=== PATIENT | female | born 1995 | race Caucasian/White ===

== ENCOUNTER 2016-04-17 16:23 | Emergency (ER) | payer OTHER ==
[2014-07-12 06:51] VITALS: BMI 38.0
[~2016-04-17 16:23] MED LIST: GLUCOPHAGE500 MG PO; LITHIUM CARBON300 M3 PO; PROTONIX40 MG PO; TOPAMAX50 MG PO; WELLBUTRIN75 MG PO
[2016-06-17] MEDS ORDERED: NAPROSYN500 MG PO (11:30)
[2016-06-17] MEDS ORDERED: ROBAXIN500 MG PO (11:31)
== END 2016-04-17 17:38 | disposition home or self-care (01) ==
LOC: D.ER 16:23
DX: G43.909 Migraine, unspecified, not intractable, without status migrainosus (principal); F31.9 Bipolar disorder, unspecified; I73.00 Raynaud's syndrome without gangrene; F20.9 Schizophrenia, unspecified; F17.200 Nicotine dependence, unspecified, uncomplicated

== ENCOUNTER → 2016-05-14 14:17 | Outpatient (CLI) | payer OTHER ==
[2014-07-12 06:51] VITALS: BMI 38.0
[~2016-05-14 14:17] MED LIST changes: +HYDROCODONE-APA1 TAB PO; +NAPROSYN500 MG PO; +ROBAXIN500 MG PO
== END | disposition home or self-care (01) ==
LOC: D.LABREF 14:17
DX: L02.91 Cutaneous abscess, unspecified (principal)

== ENCOUNTER 2016-05-14 18:20 | Emergency (ER) | payer OTHER ==
[2014-07-12 06:51] VITALS: BMI 38.0
[~2016-05-14 18:20] MED LIST changes: -HYDROCODONE-APA1 TAB PO; -NAPROSYN500 MG PO; -ROBAXIN500 MG PO
[2016-06-17] MEDS ORDERED: NAPROSYN500 MG PO (11:30)
[2016-06-17] MEDS ORDERED: ROBAXIN500 MG PO (11:31)
== END 2016-05-14 19:35 | disposition home or self-care (01) ==
LOC: D.ER 18:20
DX: L02.211 Cutaneous abscess of abdominal wall (principal); F31.9 Bipolar disorder, unspecified; I73.00 Raynaud's syndrome without gangrene; F20.9 Schizophrenia, unspecified

== ENCOUNTER → 2016-06-01 15:03 | Outpatient (CLI) | payer OTHER ==
[2014-07-12 06:51] VITALS: BMI 38.0
[~2016-06-01 15:03] MED LIST changes: +HYDROCODONE-APA1 TAB PO; +NAPROSYN500 MG PO; +ROBAXIN500 MG PO
== END | disposition home or self-care (01) ==
LOC: D.MRI 15:00
DX: M25.562 Pain in left knee (principal); M25.561 Pain in right knee

== ENCOUNTER 2016-06-18 05:34 | Day surgery (SDC) | payer OTHER ==
[~2016-06-18] VITALS: Ht 180.3 cm; Wt 129.7 kg
[~2016-06-18 05:34] MED LIST changes: -HYDROCODONE-APA1 TAB PO
[2016-06-18 06:08] LABS: HEMATOCRIT 36.3 % (36.0-48.0); HEMOGLOBIN 11.8 g/dL (12-16); MCH 32.2 pg (26.0-34.0); MCHC 32.5 g/dL (31.0-37.0); MCV 98.9 fL (80.0-100.0); MEAN PLATELET VOLUME 10.9 fL (7.4-10.4); RBC 3.67 10x6/uL (4.00-5.40); RDW 13.3 % (11.5-14.5); WBC 8.6 10x3/uL (4.8-10.8)
[2016-06-18 06:12] VITALS: BP 124/76; Ht 180.3 cm; Wt 129.7 kg
[2016-06-18 06:29] LABS: HCG URINE NEGATIVE (NEGATIVE)
[2016-06-18] MEDS ORDERED: HYDROCODONE-APA1 TAB PO (09:50)
--- NOTE | 2016-06-18 13:29 | NUR ---
1120 IV DC WITH CATHER TIP INTACT
--- NOTE | 2016-06-22 10:25 | OP ---
PATIENT NAME: ALEJANDRO HOPE MEDICAL RECORD: [id number] :94 LOCATION:D.[facility] ADMISSION DATE: SURGEON: RIANNA PADILLA MD DATE OF OPERATION: 06/18/2016 PREOPERATIVE DIAGNOSIS: Right knee anterior cruciate ligament tear. POSTOPERATIVE DIAGNOSES: Right knee anterior cruciate ligament tear plus medial meniscus tear. PROCEDURE PERFORMED: Right knee ACL reconstruction using an allograft and partial medial meniscectomy. SURGEON: Yariel Padilla MD. ANESTHESIA: General with a block for postop pain. TOURNIQUET: Not used. CONDITION: She tolerated the procedure well, was transferred to the recovery room in stable condition at termination of the procedure. INDICATIONS: This is a pleasant 21-year-old female that had an ACL reconstruction, unfortunately ____ and further interventions have failed. She presents back for a redo reconstruction. We discussed risks, benefits, and alternatives including repeat failure. She understood and wished to proceed. OPERATIVE REPORT: The patient was taken to the operating room and placed in supine position. General anesthesia was obtained. She did receive a block in the preop holding area. In the operating room, her right leg was confirmed to be the correct leg. It was prepped and draped in normal fashion. Her previous portal sites were marked and were injected. Anterolateral portal was made for the scope and inflow, superior medial for the outflow. I proceeded to check the patellofemoral joint, this looked very good; coming down to the medial gutter into the medial joint line, she did have a small medial meniscus tear. The anterior medial portal was made under direct visualization. I then proceeded to debride this and then checked the notch for her ACL was clearly torn. I did debride the remnants out. I checked her laterally in a dhyage-gy-heeg position where she did not have any lesions noted. I then proceeded to go ahead and prepped what ended being a size 10 tibial tendon graft on the back table. This was prep, placed a guidewire, placed the guide into the tibial stump, overdrilled this, was actually ended up being essentially are same tunnel. I did remove the previous implant which was a tunnel lock implant. I then did over the top guide, placed the pin and then once this was accomplished, cleaned up around the tunnels. Following which, I pulled the graft into position with the extra large ToggleLoc to lock on the cortex of the femur. Once this was locked, I then cinched the graft up into the canal. Having accomplished this, I then placed it down unto the tibia, this time using the WasherLoc system, which we had prepped at the juncture making the tibial tunnel. When this was accomplished, I then copiously irrigated and then checked the knee. She did not have any graft impingement, everything looked appropriate; therefore, I irrigated, then closed with 2-0 Vicryl, then 3-0 Prolene, closed the portals with 3-0 Prolene, placed in an immobilizer because she had the blocks. She was awakened and transferred to the recovery room in stable condition having tolerated the procedure well. OPERATIVE REPORT [id number] ALEJANDRO HOPE TRANSINT:[id number] Voice Confirmation ID: [id number] DOCUMENT ID: [id number] RIANNA PADILLA MD at 1025 CC: [id number] DICTATION DATE: 06/18/16 1035 PERSONAL FITNESS TRAINER: 06/18/16 1659 [facility] 06/18/16 [id number] [place] [address]
== END 2016-06-18 12:00 | disposition home or self-care (01) ==
LOC: D.OPS 05:34 → D.PAN 07:00 → D.OPS 12:00
PROVIDERS: Anesthesiology; Orthopaedic Surgery Sports Medicine
DX: S83.511A Sprain of anterior cruciate ligament of right knee, initial encounter (principal); F17.200 Nicotine dependence, unspecified, uncomplicated; K21.9 Gastro-esophageal reflux disease without esophagitis; S83.241A Other tear of medial meniscus, current injury, right knee, initial encounter

== ENCOUNTER 2016-06-25 21:44 | Emergency (ER) | payer OTHER ==
[2016-06-18 06:12] VITALS: BMI 39.9
[~2016-06-25 21:44] MED LIST changes: +HYDROCODONE-APA1 TAB PO
[2016-06-25 23:24] LABS: BASOPHILS 0.4 % (0.0-2.0); EOSINOPHILS 5.6 % (0-7); HEMATOCRIT 32.9 % (36.0-48.0); HEMOGLOBIN 10.7 g/dL (12-16); IMMATURE GRANULOCYTES 0.2 % (0-5); LYMPHOCYTES 29.6 % (15-50); MCH 32.1 pg (26.0-34.0); MCHC 32.5 g/dL (31.0-37.0); MCV 98.8 fL (80.0-100.0); MEAN PLATELET VOLUME 10.8 fL (7.4-10.4); MONOCYTES 6.7 % (2-11); NEUTROPHILS 57.5 % (40-80); PLATELET COUNT 340 10x3/uL (130-400); RBC 3.33 10x6/uL (4.00-5.40); RDW 12.8 % (11.5-14.5); WBC 8.4 10x3/uL (4.8-10.8)
== END 2016-06-26 00:06 | disposition home or self-care (01) ==
LOC: D.ER 21:44
PROVIDERS: Nurse Practitioner Acute Care
DX: L76.22 Postprocedural hemorrhage of skin and subcutaneous tissue following other procedure (principal); F32.9 Major depressive disorder, single episode, unspecified; I73.00 Raynaud's syndrome without gangrene; F17.200 Nicotine dependence, unspecified, uncomplicated

== ENCOUNTER 2016-08-30 23:02 | Emergency (ER) | payer MEDICAID ==
[2016-06-18 06:12] VITALS: BMI 39.9
[2016-08-31 00:23] LABS: HEMATOCRIT 33.8 % (36.0-48.0); HEMOGLOBIN 11.2 g/dL (12-16); LYMPHOCYTES 36.4 % (15-50); MCH 31.2 pg (26.0-34.0); MCHC 33.1 g/dL (31.0-37.0); MCV 94.2 fL (80.0-100.0); MEAN PLATELET VOLUME 10.7 fL (7.4-10.4); PLATELET COUNT 291 10x3/uL (130-400); RBC 3.59 10x6/uL (4.00-5.40); RDW 12.9 % (11.5-14.5); WBC 8.8 10x3/uL (4.8-10.8)
[2016-08-31 00:24] LABS: APPEARANCE HAZY (CLEAR); BILIRUBIN NEGATIVE (NEGATIVE); COLOR YELLOW (YELLOW); GLUCOSE NEGATIVE (NEGATIVE); KETONE NEGATIVE (NEGATIVE); LEUKOCYTE ESTERASE 1+ (NEGATIVE); NITRITE NEGATIVE (NEGATIVE); PROTEIN NEGATIVE (NEGATIVE); SPECIFIC GRAVITY 1.015 (1.005-1.020); UROBILINOGEN NORMAL (NORMAL)
[2016-08-31 00:25] LABS: BACTERIA MODERATE /hpf (NONE SEEN); EPITHELIAL CELLS 0-5 /hpf (0-5); RED CELLS - URINE 0-5 /hpf (0-5); WHITE CELLS - URINE 0-5 /hpf (0-5)
[2016-08-31 00:38] LABS: ALBUMIN 3.5 g/dL (3.4-5.0); ALKALINE PHOSPHATASE 73 U/L (46-116); ALT (SGPT) 12 U/L (10-68); BILIRUBIN - TOTAL 0.19 mg/dL (0.2-1.3); CALC OSMOLALITY 282 mosm/kg (275-300); CALCIUM 8.8 mg/dL (8.5-10.1); CHLORIDE - SERUM 109 mmol/L (98-107); CREATININE - SERUM 0.7 mg/dL (0.6-1.3); GLUCOSE 98 mg/dL (74-106); POTASSIUM - SERUM 4.1 mmol/L (3.5-5.1); PROTEIN - SERUM 6.8 g/dL (6.4-8.2); SODIUM 143 mmol/L (136-145); UREA NITROGEN 8 mg/dL (7-18); eGFR NON AFRICAN AMERICAN > 90 mL/min (90-120)
[2016-08-31 00:41] LABS: HCG SERUM NEGATIVE (NEGATIVE)
== END 2016-08-31 01:28 | disposition home or self-care (01) ==
LOC: D.ER 23:02
PROVIDERS: Emergency Medicine
DX: R11.10 Vomiting, unspecified (principal); R10.9 Unspecified abdominal pain; F31.89 Other bipolar disorder; I73.00 Raynaud's syndrome without gangrene; F17.200 Nicotine dependence, unspecified, uncomplicated

== ENCOUNTER 2016-11-09 05:33 | Day surgery (SDC) | payer MEDICAID ==
[2016-11-08 14:27] LABS: HEMATOCRIT 36.9 % (36.0-48.0); HEMOGLOBIN 12.3 g/dL (12-16); MCH 31.9 pg (26.0-34.0); MCHC 33.3 g/dL (31.0-37.0); MCV 95.8 fL (80.0-100.0); MEAN PLATELET VOLUME 11.4 fL (7.4-10.4); RBC 3.85 10x6/uL (4.00-5.40); RDW 13.2 % (11.5-14.5); WBC 11.6 10x3/uL (4.8-10.8)
[2016-11-08 14:50] LABS: CALC OSMOLALITY 284 mosm/kg (275-300); CALCIUM 9.1 mg/dL (8.5-10.1); CARBON DIOXIDE 20.6 mmol/L (21.0-32.0); CHLORIDE - SERUM 108 mmol/L (98-107); CREATININE - SERUM 0.7 mg/dL (0.6-1.3); GLUCOSE 92 mg/dL (74-106); POTASSIUM - SERUM 4.1 mmol/L (3.5-5.1); SODIUM 144 mmol/L (136-145); UREA NITROGEN 6 mg/dL (7-18); eGFR NON AFRICAN AMERICAN > 90 mL/min (90-120)
[~2016-11-09] VITALS: Ht 180.3 cm; Wt 138.8 kg
[~2016-11-09 05:33] MED LIST changes: +KLONOPIN0.5 MG PO; +LANREOTIDE; +LATUDA40 MG PO
[2016-11-09 08:38] VITALS: BP 102/64; Ht 180.3 cm; Wt 138.8 kg
[2016-11-09 09:39] LABS: HCG URINE NEGATIVE (NEGATIVE)
--- NOTE | 2016-11-09 13:34 | NUR ---
EQUAL STRENGHTS IN BOTH LOWER EXTREMETIES NO NUMBNESS REPORTED
--- NOTE | 2016-11-09 16:14 | NUR ---
1445 IV DC WITH CATHER TIP INTACT [address] YEUNG FOR RX
--- NOTE | 2016-11-12 09:39 | OP ---
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 PROCEDURE: Lumbar laminotomy, medial facetectomy and foraminotomy at L4-5 on the right with discectomy with METRx retractor. DESCRIPTION OF TECHNIQUE: After induction of general endotracheal anesthesia, the patient was rolled prone on a Alejandro frame. Lumbar spine was prepped and draped in usual sterile fashion. Fluoroscopic x-ray and spinal needle localized the L4-5 interspace on the right side. A series of dilators was used to advance METRx retractor to the L4-5 interspace on the right. Level was confirmed with fluoroscopic x-ray. A Midas Amadou drill and microscope were used for laminotomy, medial facetectomy and foraminotomy at L4-5 on the right. Hypertrophied ligamentum flavum was removed with Cloward rongeurs. There is an obvious free fragment disc herniation within the spinal canal, this was smoothed with pituitary rongeurs in piecemeal fashion in 3 separate large chunks. The spinal canal was swept freeing any further disc fragments with a [place] elevator. Meticulous hemostasis was maintained throughout the wound. It was irrigated with copious amounts of Ancef irrigant solution. The fascia was closed with 2-0 Vicryl suture, the subdermal layer was closed with 3-0 Vicryl suture and the skin was closed with zulma. A sterile dressing was applied to the wound. The patient was awakened in good condition and taken to recovery. All counts were reported as correct. Estimated blood loss was minimal. TRANSINT:[id number] Voice Confirmation ID: [id number] DOCUMENT ID: [id number] JATINDER YEUNG MD at 0939 CC: [id number] DICTATION DATE: 11/10/16 1249 ENVIRONMENTAL ENGINEERING PROFESSOR: 11/10/16 1857 [facility] 11/09/16 [place] [address]
== END 2016-11-09 15:30 | disposition home or self-care (01) ==
LOC: D.OPS 05:33 → D.PAN 09:45 → D.OPS 09:45
PROVIDERS: Anesthesiology; Neurological Surgery
DX: M51.26 Other intervertebral disc displacement, lumbar region (principal); M48.06 Spinal stenosis, lumbar region; F17.200 Nicotine dependence, unspecified, uncomplicated; K21.9 Gastro-esophageal reflux disease without esophagitis; E66.9 Obesity, unspecified; Z68.41 Body mass index [BMI] 40.0-44.9, adult; Z01.812 Encounter for preprocedural laboratory examination

== ENCOUNTER 2016-11-17 22:13 | Emergency (ER) | payer MEDICAID ==
[2016-11-09 08:38] VITALS: BMI 42.7
== END 2016-11-17 22:56 | disposition home or self-care (01) ==
LOC: D.ER 22:13
DX: T81.31XA Disruption of external operation (surgical) wound, not elsewhere classified, initial encounter (principal); F17.200 Nicotine dependence, unspecified, uncomplicated

== ENCOUNTER → 2016-12-14 13:04 | Outpatient (CLI) | payer MEDICAID ==
[2016-11-09 08:38] VITALS: BMI 42.7
== END | disposition home or self-care (01) ==
LOC: D.MRI 13:04
DX: M25.561 Pain in right knee (principal)

== ENCOUNTER → 2016-12-30 07:24 | Outpatient (CLI) | payer MEDICAID ==
[2016-11-09 08:38] VITALS: BMI 42.7
== END | disposition home or self-care (01) ==
LOC: D.MRI 07:24
DX: Z98.890 Other specified postprocedural states (principal)

== ENCOUNTER 2017-03-07 22:45 | Emergency (ER) | payer MEDICAID ==
[2016-11-09 08:38] VITALS: BMI 42.7
[2017-03-08 00:30] LABS: HCG URINE NEGATIVE (NEGATIVE)
== END 2017-03-08 01:42 | disposition home or self-care (01) ==
LOC: D.ER 22:45
PROVIDERS: Family Medicine
DX: S29.012A Strain of muscle and tendon of back wall of thorax, initial encounter (principal); W18.2XXA Fall in (into) shower or empty bathtub, initial encounter; Y93.E1 Activity, personal bathing and showering; Y92.012 Bathroom of single-family (private) house as the place of occurrence of the external cause

== ENCOUNTER 2017-06-21 18:28 | Emergency (ER) | payer MEDICAID ==
[2016-11-09 08:38] VITALS: BMI 42.7
== END 2017-06-21 19:48 | disposition home or self-care (01) ==
LOC: D.ER 18:28
DX: G43.909 Migraine, unspecified, not intractable, without status migrainosus (principal)

== ENCOUNTER 2017-07-28 21:42 | Emergency (ER) | payer MEDICAID ==
[2016-11-09 08:38] VITALS: BMI 42.7
[2017-07-28 23:30] LABS: APPEARANCE CLEAR (CLEAR); BILIRUBIN NEGATIVE (NEGATIVE); COLOR YELLOW (YELLOW); GLUCOSE NEGATIVE (NEGATIVE); KETONE NEGATIVE (NEGATIVE); NITRITE NEGATIVE (NEGATIVE); PROTEIN TRACE mg/dL (NEGATIVE); RED CELLS - URINE 0-5 /hpf (0-5); SPECIFIC GRAVITY 1.015 (1.005-1.020); UROBILINOGEN NORMAL (NORMAL)
[2017-07-28 23:31] LABS: BACTERIA MODERATE /hpf (NONE SEEN); EPITHELIAL CELLS 0-5 /hpf (0-5)
[2017-07-28 23:33] LABS: BASOPHILS 0.3 % (0-2); EOSINOPHILS 2.4 % (0-7); HEMATOCRIT 37.6 % (36.0-48.0); HEMOGLOBIN 12.3 g/dL (12-16); IMMATURE GRANULOCYTES 0.2 % (0-5); LYMPHOCYTES 29.7 % (15-50); MCH 30.6 pg (26.0-34.0); MCHC 32.7 g/dL (31.0-37.0); MCV 93.5 fL (80.0-100.0); MEAN PLATELET VOLUME 10.8 fL (7.4-10.4); MONOCYTES 6.6 % (2-11); NEUTROPHILS 60.8 % (40-80); RBC 4.02 10x6/uL (4.00-5.40); RDW 14.1 % (11.5-14.5); WBC 9.9 10x3/uL (4.8-10.8)
[2017-07-28 23:34] LABS: PLATELET COUNT 373 10x3/uL (130-400)
[2017-07-28 23:49] LABS: ALBUMIN 3.7 g/dL (3.4-5.0); ALKALINE PHOSPHATASE 45 U/L (46-116); ALT (SGPT) 14 U/L (10-68); BILIRUBIN - TOTAL 0.13 mg/dL (0.2-1.3); CALC OSMOLALITY 280 mosm/kg (275-300); CALCIUM 9.3 mg/dL (8.5-10.1); CARBON DIOXIDE 26.7 mmol/L (21.0-32.0); CHLORIDE - SERUM 105 mmol/L (98-107); CREATININE - SERUM 0.8 mg/dL (0.6-1.3); GLUCOSE 111 mg/dL (74-106); POTASSIUM - SERUM 4.3 mmol/L (3.5-5.1); PROTEIN - SERUM 7.5 g/dL (6.4-8.2); SODIUM 141 mmol/L (136-145); UREA NITROGEN 10 mg/dL (7-18); eGFR NON AFRICAN AMERICAN > 90 mL/min (90-120)
== END 2017-07-29 00:49 | disposition home or self-care (01) ==
LOC: D.ER 21:42
PROVIDERS: Family Medicine
DX: N39.0 Urinary tract infection, site not specified (principal); G43.909 Migraine, unspecified, not intractable, without status migrainosus

== ENCOUNTER → 2017-08-24 17:23 | Outpatient (CLI) | payer MEDICAID ==
[2016-11-09 08:38] VITALS: BMI 42.7
[~2017-08-24 17:23] MED LIST changes: +MOBIC7.5 MG; +NEURONTIN 300300 MG; +PERCOCET 7.5/321 TAB PO
== END | disposition home or self-care (01) ==
LOC: D.MRI 08:00
DX: M54.5 Low back pain (principal)

== ENCOUNTER → 2017-09-16 15:31 | Outpatient (CLI) | payer MEDICAID ==
[2016-11-09 08:38] VITALS: BMI 42.7
[~2017-09-16 15:31] MED LIST changes: +CLEOCIN HCL300 MG PO; +HYDROCODON-ACE1 EAC7 PO
== END | disposition home or self-care (01) ==
LOC: D.MRI 15:31
DX: M25.561 Pain in right knee (principal)

== ENCOUNTER 2017-09-30 08:45 | Day surgery (SDC) | payer MEDICAID ==
[2017-09-29 16:39] LABS: HEMATOCRIT 35.5 % (36.0-48.0); HEMOGLOBIN 11.9 g/dL (12-16); MCH 31.2 pg (26.0-34.0); MCHC 33.5 g/dL (31.0-37.0); MCV 93.2 fL (80.0-100.0); MEAN PLATELET VOLUME 10.7 fL (7.4-10.4); RBC 3.81 10x6/uL (4.00-5.40); RDW 13.5 % (11.5-14.5); WBC 10.8 10x3/uL (4.8-10.8)
[~2017-09-30] VITALS: Ht 182.9 cm; Wt 155.6 kg
--- NOTE | ~2017-09-30 | OP ---
PATIENT NAME: ALEJANDRO HOPE MEDICAL RECORD: [id number] :94 LOCATION:D.OPS ADMISSION DATE: SURGEON: YOHANA TELLO DO DATE OF OPERATION: 09/30/2017 PROCEDURE PERFORMED: Right knee arthroscopy with partial lateral meniscectomy and lateral release. PREOPERATIVE DIAGNOSIS: Patellofemoral syndrome. POSTOPERATIVE DIAGNOSES: Patellofemoral syndrome and lateral meniscal tear. INDICATIONS: Ms. Hope is a 22-year-old female who has had right knee pain for some time. She had an ACL done a few years ago and has had some patellofemoral symptoms since then. She has tried physical therapy and injections and has not gotten better. She wanted something done. On exam, she has a quite tight lateral retinaculum for patellar movement, could not move it more than half a quadrant medially. Upon discovering this and informing her of the risks and benefits of procedure and informing her that this should help, but she will still need to do physical therapy. She does have acromegaly as a side note, she wanted to proceed forward with the procedure. SURGEON: Yohana Tello DO DESCRIPTION OF PROCEDURE: The patient was taken to the operative suite, laid in supine position, given general anesthetic. The right lower extremity was prepped and draped in sterile fashion. Once this was prepped and draped, a timeout was performed and everyone was in agreement with the correct, side, site, and patient at that time. The 2 proposed portal sites were injected with 5 mL of 0.5% Marcaine without epinephrine each anterior lateral and anterior medial portals. An 11 blade scalpel was then used to the previous horizontal incisions and the lateral portal was established. Trocar was then entered into the knee and the knee was extended. Once the trocar was entered, the camera was entered and the knee was inspected. The patella was inspected and seemed to be riding quite far laterally. Then, the lateral gutter was inspected, no loose bodies were seen. Then, the medial gutter was inspected, no loose bodies. Then, the suprapatellar pouch was also inspected with no loose bodies. The knee was then flexed bringing the camera into view into the medial compartment. The medial portal was then established with an 18-gauge spinal needle and the 11-blade scalpel following. Trocar was then entered with a probe. The medial meniscus was probed and not seen to have any tears. The previous ACL graft was seen as well, seen to be in good position and taut. The probe was then parked in the lateral compartment and the knee was fajocl-rk-mbiusq. Once it was egvrup-aj-ttupoc, we brought the camera into view into the lateral compartment and a small tear was seen of the inner aspect of the mid portion of the lateral meniscus and a small tear was also seen in the periphery of the posterior horn posterior one-third. It was not a full thickness tear. This was roughed up to cause bleeding in hopes that it would heal in. After this was done, the camera was switched to the medial portal and the knee was partially flexed and a lateral release was performed with the ablation burner. The lateral retinaculum was released from superior to inferior and the patella was then viewed and seemed to have been shifted somewhat medially. The camera was then withdrawn. Suction was turned on and the excess fluid was removed from the knee. After the excess fluid was removed from the knee, the portal sites were closed with 4-0 Monocryl using inverted interrupted stitch. Steri-Strip was placed over that OPERATIVE REPORT [id number] ALEJANDRO HOPE and then Adaptic, 4 x 4s, and Tegaderm were placed over the wounds and Webril was placed over the knee and Dakota wrap was placed from the foot up to the knee. The patient was then awakened and taken to recovery in stable condition. Blood loss was minimal. Complications were none. TRANSINT:[id number] Voice Confirmation ID: [id number] DOCUMENT ID: [id number] YOHANA TELLO DO at 0525 CC: [id number] DICTATION DATE: 09/30/17 1414 WATER RESOURCE ENGINEERING SPECIALIST: 09/30/17 1458 [facility] 09/30/17 [facility] [address] [place] [address]
[~2017-09-30 08:45] MED LIST changes: -CLEOCIN HCL300 MG PO; -HYDROCODON-ACE1 EAC7 PO; -PERCOCET 7.5/321 TAB PO
[2017-09-30 10:17] VITALS: BP 147/82; Ht 182.9 cm; Wt 155.6 kg
[2017-09-30 10:29] LABS: HCG URINE NEGATIVE (NEGATIVE)
[2017-09-30] MEDS ORDERED: PERCOCET 7.5/321 TAB PO (14:08)
== END 2017-09-30 16:15 | disposition home or self-care (01) ==
LOC: D.OPS 08:45 → D.PAN 09:15 → D.OPS 09:45
PROVIDERS: Anesthesiology; Orthopaedic Surgery
DX: M22.2X1 Patellofemoral disorders, right knee (principal); S83.281A Other tear of lateral meniscus, current injury, right knee, initial encounter; X58.XXXA Exposure to other specified factors, initial encounter; Z01.812 Encounter for preprocedural laboratory examination

== ENCOUNTER 2017-10-24 06:07 | Day surgery (SDC) | payer MEDICAID ==
[2017-10-21 10:42] LABS: HEMATOCRIT 35.1 % (36.0-48.0); HEMOGLOBIN 11.5 g/dL (12-16); MCH 30.8 pg (26.0-34.0); MCHC 32.8 g/dL (31.0-37.0); MCV 94.1 fL (80.0-100.0); MEAN PLATELET VOLUME 10.6 fL (7.4-10.4); RBC 3.73 10x6/uL (4.00-5.40); RDW 13.1 % (11.5-14.5); WBC 10.3 10x3/uL (4.8-10.8)
[~2017-10-24] VITALS: Ht 182.9 cm; Wt 160.1 kg
--- NOTE | ~2017-10-24 | OP ---
PATIENT NAME: ALEJANDRO HOPE MEDICAL RECORD: [id number] :94 LOCATION:D.OPS ADMISSION DATE: SURGEON: KINGSLEY ARROYO MD DATE OF OPERATION: 10/24/2017 SURGEON: Kingsley Arroyo MD PREOPERATIVE DIAGNOSES: 1. Right axillary hidradenitis. 2. Nonhealing wound in right axilla. POSTOPERATIVE DIAGNOSES: 1. Right axillary hidradenitis. 2. Nonhealing wound in right axilla. PROCEDURE PERFORMED: Excisional biopsy of 4 x 3 x 3 cm right axillary nonhealing wound. ANESTHESIA: General. COMPLICATIONS: None. Case was grossly contaminated. ESTIMATED BLOOD LOSS: 20 cc. OPERATIVE COURSE: After consent was obtained, the patient was taken to the operating room and placed in supine position on the operating table. Next, general anesthesia was given via endotracheal intubation after a timeout was performed to confirm the correct patient and procedure. The right arm and axilla were prepped and draped in typical sterile fashion. An elliptical incision was made around the nonhealing draining sinus tract in the right axilla and 20 cc of local anesthetic was injected. The skin and subcutaneous tissue involving the sinus tract were excised using electrocautery and sent for pathology. The wound was irrigated. Hemostasis was obtained with electrocautery. The wound was closed in 2 layers. Subcutaneous layer was closed with 3-0 Vicryl. The skin was closed with 3-0 Monocryl, Mastisol and Steri-Strips. At the end of the case, all needle and instrument counts were correct. No complications occurred. The patient was extubated and transferred to PACU in stable condition. TRANSINT:[id number] Voice Confirmation ID: [id number] DOCUMENT ID: [id number] KINGSLEY ARROYO MD at 1648 CC: [id number] DICTATION DATE: 10/24/17 1136 FISHING ROD ASSEMBLER: 10/24/17 1248 [facility] 10/24/[address] [address]
[~2017-10-24 06:07] MED LIST changes: +PERCOCET 7.5/321 TAB PO
[2017-10-24 07:13] VITALS: BP 135/85; Ht 182.9 cm; Wt 160.1 kg
[2017-10-24 07:32] LABS: HCG URINE NEGATIVE (NEGATIVE)
[2017-10-24] MEDS ORDERED: HYDROCODON-ACE1 EAC7 PO (09:57)
== END 2017-10-24 11:05 | disposition home or self-care (01) ==
LOC: D.OPS 06:07 → D.PAN 08:00 → D.OPS 11:05
PROVIDERS: Anesthesiology; Surgery
DX: L73.2 Hidradenitis suppurativa (principal); Z01.812 Encounter for preprocedural laboratory examination

== ENCOUNTER 2017-11-02 15:31 | Emergency (ER) | payer MEDICAID ==
[~2017-11-02] VITALS: Ht 182.9 cm; Wt 159.1 kg
[~2017-11-02 15:31] MED LIST changes: +HYDROCODON-ACE1 EAC7 PO
[2017-11-02 15:45] VITALS: Ht 182.9 cm; Wt 159.1 kg
[2017-11-02] MEDS ORDERED: CLEOCIN HCL300 MG PO (15:46)
[2017-11-02] MEDS ORDERED: HYDROCODON-ACE1 EAC7 PO (16:52)
[2017-11-02 17:06] VITALS: BP 125/80
== END 2017-11-02 17:05 | disposition home or self-care (01) ==
LOC: D.ER 15:31
DX: Z09 Encounter for follow-up examination after completed treatment for conditions other than malignant neoplasm (principal); K21.9 Gastro-esophageal reflux disease without esophagitis

== ENCOUNTER → 2018-07-31 14:54 | Outpatient (CLI) | payer MEDICAID ==
[2017-11-02 15:45] VITALS: BMI 47.6
[~2018-07-31 14:54] MED LIST changes: +CLEOCIN HCL300 MG PO
== END | disposition home or self-care (01) ==
LOC: D.MRI 14:54
PROVIDERS: ATTEND Orthopaedic Surgery
DX: M25.561 Pain in right knee (principal)

== ENCOUNTER 2019-01-12 19:47 | Emergency (ER) | payer MEDICAID ==
[~2019-01-12] VITALS: Ht 182.9 cm; Wt 153.2 kg
[2019-01-12 19:59] VITALS: Ht 182.9 cm; Wt 153.2 kg
[2019-01-12 22:00] VITALS: BP 182/86
== END 2019-01-12 21:50 | disposition home or self-care (01) ==
LOC: D.ER 19:47
DX: M54.12 Radiculopathy, cervical region (principal)

== ENCOUNTER 2019-02-04 20:24 | Emergency (ER) | payer MEDICAID ==
[~2019-02-04] VITALS: Ht 182.9 cm; Wt 159.1 kg
[2019-02-04 20:30] VITALS: Ht 182.9 cm; Wt 159.1 kg
[2019-02-04] MEDS ORDERED: LOPERAMIDE HCL2 MG PO (20:37)
[2019-02-04] MEDS ORDERED: PHENERGAN25 M1 PO (20:37)
[2019-02-04 21:10] LABS: BASOPHILS 0.2 % (0-2); EOSINOPHILS 1.4 % (0-7); HEMATOCRIT 39.1 % (36.0-48.0); HEMOGLOBIN 12.2 g/dL (12-16); IMMATURE GRANULOCYTES 0.2 % (0-5); LYMPHOCYTES 7.8 % (15-50); MCHC 31.2 g/dL (31.0-37.0); MCV 89.9 fL (80.0-100.0); MEAN PLATELET VOLUME 11.1 fL (7.4-10.4); MONOCYTES 5.1 % (2-11); NEUTROPHILS 85.3 % (40-80); PLATELET COUNT 375 10x3/uL (130-400); RBC 4.35 10x6/uL (4.00-5.40); RDW 15.2 % (11.5-14.5); WBC 10.9 10x3/uL (4.8-10.8)
[2019-02-04 21:22] LABS: ANION GAP 15.6 mmol/L (8-16); CARBON DIOXIDE 22.7 mmol/L (21.0-32.0); POTASSIUM - SERUM 4.3 mmol/L (3.5-5.1)
[2019-02-04 21:28] LABS: ALBUMIN 3.7 g/dL (3.4-5.0); BILIRUBIN - TOTAL 0.31 mg/dL (0.2-1.3); PROTEIN - SERUM 7.7 g/dL (6.4-8.2)
[2019-02-04 21:37] LABS: HCG URINE NEGATIVE (NEGATIVE)
[2019-02-04 21:41] LABS: APPEARANCE HAZY (CLEAR); BACTERIA MANY /hpf (NEGATIVE); BILIRUBIN NEGATIVE (NEGATIVE); COLOR YELLOW (YELLOW); EPITHELIAL CELLS 0-5 /hpf (0-5); GLUCOSE NEGATIVE (NEGATIVE); KETONE SMALL mg/dL (NEGATIVE); MUCUS <1+ /lpf (NONE SEEN); NITRITE NEGATIVE (NEGATIVE); PROTEIN NEGATIVE (NEGATIVE); RED CELLS - URINE RARE /hpf (0-5); SPECIFIC GRAVITY 1.015 (1.005-1.020); UROBILINOGEN NORMAL (NORMAL); WHITE CELLS - URINE 0-5 /hpf (NEGATIVE)
[2019-02-04 22:21] VITALS: BP 119/89
== END 2019-02-04 22:20 | disposition home or self-care (01) ==
LOC: D.ER 20:24
PROVIDERS: Family Medicine
DX: R11.2 Nausea with vomiting, unspecified (principal); R19.7 Diarrhea, unspecified; E22.0 Acromegaly and pituitary gigantism

== ENCOUNTER 2019-07-15 16:45 | Observation (INO) | payer MEDICAID ==
[~2019-07-15] VITALS: Ht 182.9 cm; Wt 159.1 kg
[~2019-07-15 16:45] MED LIST changes: +LOPERAMIDE HCL2 MG PO; +PHENERGAN25 M1 PO
[2019-07-15 17:18] LABS: BILIRUBIN NEGATIVE (NEGATIVE); GLUCOSE NEGATIVE (NEGATIVE); KETONE NEGATIVE (NEGATIVE); NITRITE NEGATIVE (NEGATIVE); UROBILINOGEN NORMAL (NORMAL)
[2019-07-15 17:18] LABS: BASOPHILS 0.3 % (0-2); EOSINOPHILS 2.6 % (0-7); HEMATOCRIT 36.7 % (36.0-48.0); HEMOGLOBIN 11.7 g/dL (12-16); IMMATURE GRANULOCYTES 0.5 % (0-5); LYMPHOCYTES 27.5 % (15-50); MCH 29.9 pg (26.0-34.0); MCHC 31.9 g/dL (31.0-37.0); MCV 93.9 fL (80.0-100.0); MEAN PLATELET VOLUME 10.3 fL (7.4-10.4); MONOCYTES 4.9 % (2-11); NEUTROPHILS 64.2 % (40-80); PLATELET COUNT 434 10x3/uL (130-400); RBC 3.91 10x6/uL (4.00-5.40); RDW 14.7 % (11.5-14.5); WBC 9.3 10x3/uL (4.8-10.8)
[2019-07-15 17:25] LABS: CALC OSMOLALITY 279 mosm/kg (275-300); CALCIUM 8.9 mg/dL (8.5-10.1); CARBON DIOXIDE 24.5 mmol/L (21.0-32.0); CHLORIDE - SERUM 106 mmol/L (98-107); CREATININE - SERUM 0.9 mg/dL (0.6-1.3); GLUCOSE 145 mg/dL (74-106); SODIUM 140 mmol/L (136-145); UREA NITROGEN 7 mg/dL (7-18); eGFR NON AFRICAN AMERICAN 81 mL/min (90-120)
[2019-07-15 17:31] LABS: ALBUMIN 3.4 g/dL (3.4-5.0); ALKALINE PHOSPHATASE 58 U/L (30-120); ALT (SGPT) 26 U/L (10-68); BILIRUBIN - TOTAL 0.27 mg/dL (0.2-1.3); PROTEIN - SERUM 7.1 g/dL (6.4-8.2)
[2019-07-15 17:32] LABS: HCG SERUM NEGATIVE (NEGATIVE)
[2019-07-15 18:00] LABS: C-REACTIVE PROTEIN 0.5 mg/dL (0.0-0.9)
--- NOTE | 2019-07-15 19:17 | NUR ---
MORPHINE AND ZOFRAN GIVEN AFTER PATIENT RETURNS FROM RESTROOM. IV NS CON'T WITHOUT S/S OF INFILTRATION. BLANKET TO PATIENT.
[2019-07-15 20:08] LABS: AMYLASE - SERUM 34 U/L (25-115); LIPASE 121 U/L (73-393)
[2019-07-15 21:18] LABS: C-REACTIVE PROTEIN < 0.2 mg/dL (0.0-0.9); FERRITIN 16 ng/mL (3-244)
[2019-07-15] MEDS ORDERED: SEROQUEL XR400 M1 PO (22:24)
--- NOTE | 2019-07-15 23:33 | NUR ---
PATIENT IS IN 2223 AND IS HERE FOR PAIN OF AN UNKNOWN CAUSE, SHE DENIES BEING SUICIDIAL AND IS HERE FOR HELP WITH HER PAIN, SHE HAS A AND FAMILY THAT SHE LOVES AND LIVES FOR (NEPHEW), SHE HAS [facility] CONTACT AND WANTS TO GET BETTER AND GO HOME AND BE WITH HER FAMILY.
[2019-07-16 00:23] VITALS: BP 133/72; BMI 47.6
[2019-07-16 04:00] VITALS: BP 133/69
[2019-07-16 05:44] LABS: HEMATOCRIT 34.9 % (36.0-48.0); HEMOGLOBIN 11.2 g/dL (12-16); LYMPHOCYTES 28.4 % (15-50); MCH 30.1 pg (26.0-34.0); MCHC 32.1 g/dL (31.0-37.0); MCV 93.8 fL (80.0-100.0); MEAN PLATELET VOLUME 11.5 fL (7.4-10.4); RBC 3.72 10x6/uL (4.00-5.40); RDW 14.5 % (11.5-14.5); WBC 9.9 10x3/uL (4.8-10.8)
[2019-07-16 05:45] LABS: PLATELET COUNT 314 10x3/uL (130-400)
[2019-07-16 05:50] LABS: ALBUMIN 3.1 g/dL (3.4-5.0); ALKALINE PHOSPHATASE 48 U/L (30-120); BILIRUBIN - TOTAL 0.25 mg/dL (0.2-1.3); CALC OSMOLALITY 276 mosm/kg (275-300); CALCIUM 8.3 mg/dL (8.5-10.1); CARBON DIOXIDE 24.8 mmol/L (21.0-32.0); CHLORIDE - SERUM 106 mmol/L (98-107); CREATININE - SERUM 0.8 mg/dL (0.6-1.3); GLUCOSE 108 mg/dL (74-106); POTASSIUM - SERUM 4.2 mmol/L (3.5-5.1); PROTEIN - SERUM 6.1 g/dL (6.4-8.2); SODIUM 139 mmol/L (136-145); UREA NITROGEN 8 mg/dL (7-18); eGFR NON AFRICAN AMERICAN > 90 mL/min (90-120)
[2019-07-16 05:52] LABS: ALT (SGPT) 19 U/L (10-68)
[2019-07-16 08:02] VITALS: BP 129/77
--- NOTE | 2019-07-16 08:30 | NUR ---
PATIENT IN BED WITH IV INTACT. NO COMPLAINTS OR SIGNS OF DISTRESS. CALL LIGHT WITHIN REACH.
[2019-07-16 11:45] VITALS: BP 131/88
--- NOTE | 2019-07-16 12:00 | NUR ---
PATIENT IN BED WITH IV INTACT. STATES HAND IS SWOLLEN AND HURTING. PATIENT HAND DOES NOT LOOK SWOLLEN TO ME, BUT GAVE HER A PILLOW AND EXPLAINED TO ELEVATE. VERBALIZED UNDERSTANDING. CALL LIGHT WITHIN REACH.
[2019-07-16 15:51] VITALS: Ht 182.9 cm; Wt 159.1 kg
[2019-07-16 16:49] VITALS: BP 107/66
--- NOTE | 2019-07-16 16:59 | NUR ---
PATIENT IV REMOVED WITH CATH TIP INTACT. RECIEVED DC INSTRUCTIONS AND VERBALIZED UNDERSTANDING. NO QUESTIONS AT THIS TIME. NO NEW MEDS. FOLLOW UP WITH MEMO NOTED. PATIENT AWAITING TRANSPORTATION FOR DC. CALL LIGHT WITHIN REACH.
--- NOTE | 2019-07-16 17:25 | NUR ---
PATIENT ESCORTED OUT OF HOSPITAL WITH PERSONAL BELONGINGS TO PRIVATE VEHICLE BY TRAINING AND DEVELOPMENT OFFICER.
== END 2019-07-16 17:39 | disposition home or self-care (01) ==
LOC: D.ER 16:45 → D.MS 21:17 → OBSVTIME 07-16 → D.MS 07-16 17:39
PROVIDERS: Family Medicine; ADMIT Internal Medicine Nephrology; ATTEND Internal Medicine Nephrology
DX: R10.9 Unspecified abdominal pain (principal); D64.9 Anemia, unspecified; E22.0 Acromegaly and pituitary gigantism; E46 Unspecified protein-calorie malnutrition; Z68.42 Body mass index [BMI] 45.0-49.9, adult

== ENCOUNTER → 2019-09-03 09:21 | Outpatient (CLI) | payer MEDICAID ==
[2019-07-16 15:51] VITALS: BMI 47.6
[~2019-09-03 09:21] MED LIST changes: +SEROQUEL XR400 M1 PO
[2019-09-03 10:03] LABS: ALBUMIN 3.4 g/dL (3.4-5.0); BILIRUBIN - DIRECT 0.07 mg/dL (0.00-0.30); BILIRUBIN - INDIRECT 0.13 mg/dL (0.00-1.00); BILIRUBIN - TOTAL 0.2 mg/dL (0.2-1.3); PROTEIN - SERUM 7.2 g/dL (6.4-8.2)
== END | disposition home or self-care (01) ==
LOC: D.LAB 09:21 → D.MRI 10:00
PROVIDERS: ATTEND Internal Medicine Gastroenterology
DX: R10.9 Unspecified abdominal pain (principal); R16.0 Hepatomegaly, not elsewhere classified; K76.9 Liver disease, unspecified

== ENCOUNTER → 2020-08-12 08:18 | Outpatient (CLI) | payer MEDICAID ==
[2020-03-10 14:46] VITALS: BMI 47.7
[~2020-08-12 08:18] MED LIST changes: +FLAGYL500 MG PO; +LEVOFLOXACIN500 MG PO; +LOMOTIL 2.5-0.1 EAC1 PO
[2020-08-12 08:58] LABS: ALBUMIN 3.4 g/dL (3.4-5.0); BILIRUBIN - DIRECT 0.12 mg/dL (0.00-0.30); BILIRUBIN - INDIRECT 0.27 mg/dL (0.00-1.00); BILIRUBIN - TOTAL 0.39 mg/dL (0.2-1.3); PROTEIN - SERUM 6.6 g/dL (6.4-8.2)
== END | disposition home or self-care (01) ==
LOC: D.US 08:15
PROVIDERS: ATTEND Internal Medicine Gastroenterology
DX: K76.0 Fatty (change of) liver, not elsewhere classified (principal)

== ENCOUNTER 2020-08-28 08:04 | Day surgery (SDC) | payer MEDICAID ==
[~2020-08-28] VITALS: Ht 180.3 cm; Wt 165.9 kg
[~2020-08-28 08:04] MED LIST changes: -NEURONTIN 300300 MG; +NEURONTIN 300300 MG PO
[2020-08-28 08:29] LABS: BASOPHILS 0.6 % (0-2); CALC OSMOLALITY 278 mosm/kg (275-300); CALCIUM 8.7 mg/dL (8.5-10.1); CARBON DIOXIDE 23.4 mmol/L (21.0-32.0); CHLORIDE - SERUM 105 mmol/L (98-107); CREATININE - SERUM 0.9 mg/dL (0.6-1.3); EOSINOPHILS 3.8 % (0-7); GLUCOSE 115 mg/dL (74-106); HEMATOCRIT 37.6 % (36.0-48.0); HEMOGLOBIN 12.7 g/dL (12-16); LYMPHOCYTES 27.9 % (15-50); MCH 30.4 pg (26.0-34.0); MCHC 33.6 g/dL (31.0-37.0); MCV 90.5 fL (80.0-100.0); MEAN PLATELET VOLUME 9.6 fL (7.4-10.4); MONOCYTES 7.2 % (2-11); NEUTROPHILS 60.5 % (40-80); PLATELET COUNT 384 10x3/uL (130-400); POTASSIUM - SERUM 4.3 mmol/L (3.5-5.1); RBC 4.16 10x6/uL (4.00-5.40); RDW 14.9 % (11.5-14.5); SODIUM 140 mmol/L (136-145); UREA NITROGEN 9 mg/dL (7-18); WBC 9.3 10x3/uL (4.8-10.8); eGFR NON AFRICAN AMERICAN 80 mL/min (90-120)
[2020-08-28 08:34] LABS: APTT 29.6 SECONDS (22.8-39.4); INR 1.07 (0.85-1.17); PROTIME 12.8 SECONDS (11.6-15.0)
[2020-08-28] MEDS ORDERED: ZANAFLEX4 MG PO (08:44)
[2020-08-28] MEDS ORDERED: PAMELOR 25 MG C25 MG PO (08:45)
[2020-08-28] MEDS ORDERED: CELEXA40 MG PO (08:45)
[2020-08-28] MEDS ORDERED: TOPROL XL25 MG PO (08:46)
[2020-08-28] MEDS ORDERED: FUROSEMIDE20 MG PO (08:46)
--- NOTE | 2020-08-28 08:56 | NUR ---
PT'S SUICIDE RISK SCREENING WAS A 2. PT STATES SHE IS CURRENLTY IN THERAPY AND DECLINES ANY FURTHER INTERVENTION AT THIS TIME.
[2020-08-28 08:57] VITALS: BP 142/86; Ht 180.3 cm; Wt 165.9 kg
[2020-08-28 09:08] LABS: HCG SERUM NEGATIVE (NEGATIVE)
--- NOTE | 2020-08-28 10:05 | NUR ---
DC TEACHING COMPLETE TO PT AND . VERBALIZED UNDERSTANDING. 1008 DR WALLACE AT BEDSIDE 1015 PIV REMOVED WITH CATHETER INTACT, PT DRESSING 1025 PT DC'D VIA WC ACCOMPANIED BY [place] TO POV WITH ALL BELONGINGS AND DC PACKET WITH DRIVING.
--- NOTE | 2020-08-28 12:40 | OP ---
PATIENT NAME: ALEJANDRO HOPE MEDICAL RECORD: [id number] :94 LOCATION:[facility] ADMISSION DATE: SURGEON: MATT WALLACE MD DATE OF OPERATION: 08/28/2020 PROCEDURE PERFORMED: Upper endoscopy. PREOPERATIVE DIAGNOSIS: Ms. Hope is a pleasant 25-year-old female with a history of dysphagia and abdominal pain. MEDICATION: Propofol per anesthesia. Upper endoscopy was performed. The endoscope was advanced through the mouth and advanced to the second part of the duodenum. The proximal and mid esophagus were normal and the distal esophagus was a mild esophageal stricture. This was dilated with an 18, 19, and 20 through the scope balloon. In the gastric body was erythema consistent with gastritis. Random gastric biopsies were taken. The duodenum was normal. Small bowel biopsies were taken. Retroflexion was normal. The patient tolerated the procedure well. There were no immediate complications. FINAL DIAGNOSES: Mild esophageal stricture, mild gastritis, normal duodenum. PLAN: Check histology results. Advance diet. Return to GI office. Of note, this patient is already on a proton pump inhibitor as well as Tums. More recommendations to be made after biopsy results. TRANSINT:[id number] Voice Confirmation ID: [id number] DOCUMENT ID: [id number] MATT WALLACE MD at 1240 CC: [id number] DICTATION DATE: 08/28/20916 AUTO PARTS SALESPERSON: 08/28/20 0942 [facility] 08/28/20 [place] [id number] [place] [id number]
== END 2020-08-28 10:25 | disposition home or self-care (01) ==
LOC: D.OPS 08:04
PROVIDERS: Anesthesiology; ATTEND Internal Medicine Gastroenterology
DX: R13.10 Dysphagia, unspecified (principal); R10.9 Unspecified abdominal pain; K22.2 Esophageal obstruction; K29.70 Gastritis, unspecified, without bleeding; R11.2 Nausea with vomiting, unspecified; R10.13 Epigastric pain